=== PATIENT | female | born 1970 | race Caucasian/White ===

== ENCOUNTER 2016-08-21 08:40 | Outpatient (CLI) | payer OTHER | END 2016-08-21 08:41 | disposition home or self-care (01) | DX: N73.9 Female pelvic inflammatory disease, unspecified (principal) ==

== ENCOUNTER 2017-01-28 10:15 | Outpatient (CLI) | payer OTHER ==
--- NOTE | 2017-01-29 16:03 | Mammography Report ---
DIGITAL SCREENING MAMMOGRAM: 01/28/2017 CLINICAL INDICATION: A 46-year-old, for screening. COMPARISON: 11/2013, 10/2012, 09/2012, 12/2007. TECHNIQUE: Routine CC and MLO projections were obtained of the breasts. Bilateral laterally exaggera stone craniocaudal views. FINDINGS: The breasts again demonstrate heterogeneously dense fibroglandular parenchyma bilaterally. Punctate, typically benign calcifications are present. No suspicious masses, clustered microcalcific ations, or regions of architectural distortion are identified. IMPRESSION: BENIGN FINDINGS. RECOMMENDATION: ROUTINE ANNUAL SCREENING UNLESS OTHERWISE CLINICALLY INDICATED. BIRADS CATEGORY 2-BENIGN FINDINGS. STANDARD QUALIFYING STATEMENTS 1. This examination was reviewed with the aid of Computer-Aided Detection (CAD). 2. A negative or benign imaging report should not delay biopsy if clinically suspicious findings are present. Consider surgical consultation if warranted. More than 5% of cancers are not identified by i maging. 3. Dense breasts may obscure an underlying neoplasm. JOB #: [id number] EXT JOB #:[id number]
== END 2017-01-28 10:16 | disposition home or self-care (01) ==
LOC: DI.N 10:15
PROVIDERS: ATTEND Physician Assistant Medical
DX: Z12.31 Encounter for screening mammogram for malignant neoplasm of breast (principal)
CPT/HCPCS: 77067

== ENCOUNTER 2017-02-16 12:22 | Outpatient (CLI) | payer OTHER | END 2017-02-16 12:23 | disposition home or self-care (01) | LOC: LAB.R 12:22 | PROVIDERS: ATTEND Family Medicine | DX: N39.0 Urinary tract infection, site not specified (principal) | CPT/HCPCS: 87077; 87086 ==

== ENCOUNTER 2017-02-16 16:30 | Outpatient (CLI) | payer OTHER ==
[2017-02-16 16:53] LABS: BASOPHILS # (AUTO) 0.1 10^3/uL (0.0-0.1); BASOPHILS % (AUTO) 0.5 %; EOSINOPHILS # (AUTO) 0.1 10^3/uL (0.0-0.7); EOSINOPHILS % (AUTO) 1.1 %; HCT - HEMATOCRIT 38.7 % (37.0-47.0); HGB - HEMOGLOBIN 12.7 g/dL (12.0-16.0); LYMPHOCYTES # (AUTO) 1.6 10^3/uL (1.5-3.5); LYMPHOCYTES % (AUTO) 13.1 %; MEAN CORPUSCULAR HEMOGLOBIN 30.2 pg (27.0-31.0); MEAN CORPUSCULAR HGB CONC 32.8 g/dL (32.0-36.0); MEAN PLATELET VOLUME 7.7 fL (7.9-10.8); MONOCYTES # (AUTO) 0.9 10^3/uL (0.0-1.0); MONOCYTES % (AUTO) 7.3 %; NEUTROPHILS # (AUTO) 9.7 10^3/uL (1.5-6.6); RED CELL DISTRIBUTION WIDTH 13.1 % (12.0-15.0); UNCORRECTED WHITE BLOOD COUNT 12.4 x10^3/uL; WHITE BLOOD COUNT 12.4 x10^3/uL (4.8-10.8)
[2017-02-16 17:08] LABS: ALBUMIN/GLOBULIN RATIO 0.9 (1.0-2.2); AMYLASE 40 U/L (28-100); BILIRUBIN,TOTAL 0.2 mg/dL (0.2-1.0); BUN - BLOOD UREA NITROGEN 10 mg/dL (6-20); CARBON DIOXIDE - CO2 27 mmol/L (21-32); CHLORIDE 104 mmol/L (101-111); CREATININE 0.8 mg/dL (0.4-1.0); GFR - MDRD 77 (>89); GLUCOSE 116 mg/dL (70-100); LIPASE 20 U/L (22-51); POTASSIUM 3.8 mmol/L (3.5-5.0); SODIUM 137 mmol/L (135-145); TOTAL PROTEIN 7.2 g/dL (6.7-8.2)
[2017-02-16] MEDS ORDERED: IOPAMIDOL-300 100 ML VIAL IVP ONE (18:03)
--- NOTE | 2017-02-16 20:29 | CT Report ---
EXAM: CT ABDOMEN AND PELVIS WITHOUT AND WITH CONTRAST (CT IVP) EXAM DATE: 02/16/2017 05:33 p.m. CLINICAL HISTORY: Urinary tract infection, acute. COMPARISONS: None. TECHNIQUE: Routine helical imaging was performed through the kidneys, ureters and bladder in the prec ontrast and postcontrast delayed phase. IV Contrast: 100 mL of Isovue-300. Reconstructions: Coronal a nd sagittal. In accordance with CT protocol optimization, one or more of the following dose reduction techniques w ere utilized for this exam: automated exposure control, adjustment of mA and/or KV based on patient s ize, or use of iterative reconstructive technique. FINDINGS: Lung Bases: Unremarkable. Right Kidney/Ureter: No stones, hydronephrosis, or masses. Distal right ureter incompletely opacified . No obstructing ureteral stone. Abnormal stranding and inflammation surrounding the proximal right u reter and right renal pelvis. Mild right perinephric stranding is also present. Abnormal urothelial t hickening is present in the right renal pelvis and proximal right ureter. Left Kidney/Ureter: No stones, hydronephrosis, or masses. Other Solid Organs: The liver, spleen, pancreas, gallbladder, and adrenal glands are unremarkable.The bile ducts are unremarkable. Peritoneal Cavity/Bowel: Normal. No free fluid, free air or adenopathy. No masses. Bowel loops are u nremarkable. There are multiple diverticula seen which most severely affect the sigmoid colon. No wa ll thickening or adjacent inflammation seen. No obstruction noted. Normal appendix. Pelvic Organs: No bladder stones, obstruction or masses. The visualized pelvic organs are unremarkabl e. Vasculature: Normal. Bones: Normal. Other: None. IMPRESSION: 1. Abnormal inflammation surrounding the proximal right ureter and right renal pelvis with associated urothelial thickening. In the setting of urinary tract infection, findings are most compatible with an ascending urinary tract infection. No perinephric fluid collection, stones or renal mass. 2. Normal left CT IVP. No urinary tract masses, stones or obstruction. 3. Diverticulosis. Normal appendix. RADIA The call report notification system was initiated by Dr. Margarita Diggs at 19:47 hrs on 02/16/17. The above findings were discussed with Dr. Kincaid by Dr. Margarita Diggs at 20:19 hrs on 02/16/17. Referring Provider Line: [phone] SITE ID: [id number]
== END 2017-02-16 16:31 | disposition home or self-care (01) ==
LOC: DI 16:30
PROVIDERS: ATTEND Family Medicine
DX: N28.89 Other specified disorders of kidney and ureter (principal); K57.90 Diverticulosis of intestine, part unspecified, without perforation or abscess without bleeding; R10.9 Unspecified abdominal pain
CPT/HCPCS: 36415; 74178; 80053; 82150; 83690; 84703; 85025; Q9967; 87077; 87086

== ENCOUNTER 2017-08-28 08:00 | Outpatient (CLI) | payer OTHER | END 2017-08-28 08:01 | disposition home or self-care (01) | LOC: LAB.WCP 08:00 | PROVIDERS: ATTEND Family Medicine | DX: J06.9 Acute upper respiratory infection, unspecified (principal) | CPT/HCPCS: 87275; 87276 ==

== ENCOUNTER 2018-03-18 11:20 | Outpatient (CLI) | payer OTHER ==
[2018-03-18 19:07] LABS: BASOPHILS # (AUTO) 0.1 10^3/uL (0.0-0.1); BASOPHILS % (AUTO) 1.1 %; EOSINOPHILS # (AUTO) 0.1 10^3/uL (0.0-0.7); EOSINOPHILS % (AUTO) 2.1 %; HGB - HEMOGLOBIN 12.3 g/dL (12.0-16.0); LYMPHOCYTES % (AUTO) 19.8 %; MEAN CORPUSCULAR HEMOGLOBIN 33.6 pg (27.0-31.0); MEAN CORPUSCULAR HGB CONC 33.7 g/dL (32.0-36.0); MEAN CORPUSCULAR VOLUME 99.8 fL (81.0-99.0); MEAN PLATELET VOLUME 8.9 fL (7.9-10.8); MONOCYTES # (AUTO) 0.5 10^3/uL (0.0-1.0); MONOCYTES % (AUTO) 10.6 %; NEUTROPHILS # (AUTO) 3.3 10^3/uL (1.5-6.6); NEUTROPHILS % (AUTO) 66.4 %; PLT - PLATELET COUNT 163 10^3/uL (130-450); RED BLOOD COUNT 3.65 10^6/uL (4.20-5.40); RED CELL DISTRIBUTION WIDTH 15.7 % (12.0-15.0); WHITE BLOOD COUNT 4.9 x10^3/uL (4.8-10.8)
[2018-03-18 19:19] LABS: ALBUMIN 3.6 g/dL (3.2-5.5); ALBUMIN/GLOBULIN RATIO 1.2 (1.0-2.2); ALKALINE PHOSPHATASE 42 IU/L (42-121); ALT ALANINE AMINOTRANSFERASE 82 IU/L (10-60); AST ASPARTATE AMINOTRANSFERASE 92 IU/L (10-42); BILIRUBIN,TOTAL 0.4 mg/dL (0.2-1.0); BUN - BLOOD UREA NITROGEN 9 mg/dL (6-20); CALCIUM 9.7 mg/dL (8.5-10.3); CARBON DIOXIDE - CO2 25 mmol/L (21-32); CHLORIDE 104 mmol/L (101-111); GFR - MDRD 59 (>89); GLUCOSE 170 mg/dL (70-100); SODIUM 137 mmol/L (135-145); TOTAL PROTEIN 6.7 g/dL (6.7-8.2)
[2018-03-18 19:27] LABS: THYROID STIMULATING HORMONE 1.91 uIU/mL (0.34-5.60)
[2018-03-18 19:32] LABS: PROLACTIN 9.91 ng/mL
== END 2018-03-18 11:21 ==
LOC: LAB.WCP 11:20
PROVIDERS: ATTEND Family Medicine
DX: E31.21 Multiple endocrine neoplasia [MEN] type I (principal)
CPT/HCPCS: 36415; 80053; 83970; 84146; 84443; 85025

== ENCOUNTER 2018-03-22 15:54 | Outpatient (CLI) | payer OTHER ==
[2018-03-22 16:13] LABS: BASOPHILS % (AUTO) 0.7 %; EOSINOPHILS # (AUTO) 0.1 10^3/uL (0.0-0.7); EOSINOPHILS % (AUTO) 1.8 %; HGB - HEMOGLOBIN 12.4 g/dL (12.0-16.0); LYMPHOCYTES # (AUTO) 1.6 10^3/uL (1.5-3.5); LYMPHOCYTES % (AUTO) 27.1 %; MEAN CORPUSCULAR HEMOGLOBIN 33.2 pg (27.0-31.0); MEAN CORPUSCULAR HGB CONC 33.5 g/dL (32.0-36.0); MEAN CORPUSCULAR VOLUME 99.2 fL (81.0-99.0); MEAN PLATELET VOLUME 7.8 fL (7.9-10.8); MONOCYTES # (AUTO) 1.1 10^3/uL (0.0-1.0); MONOCYTES % (AUTO) 17.9 %; NEUTROPHILS # (AUTO) 3.1 10^3/uL (1.5-6.6); NEUTROPHILS % (AUTO) 52.5 %; PLT - PLATELET COUNT 240 10^3/uL (130-450); RED BLOOD COUNT 3.72 10^6/uL (4.20-5.40); RED CELL DISTRIBUTION WIDTH 16.2 % (12.0-15.0); WHITE BLOOD COUNT 5.9 x10^3/uL (4.8-10.8)
== END 2018-03-22 15:55 | disposition home or self-care (01) ==
LOC: LAB 15:54
PROVIDERS: ATTEND Registered Nurse
DX: N93.9 Abnormal uterine and vaginal bleeding, unspecified (principal)
CPT/HCPCS: 36415; 84443; 85025; 85730

== ENCOUNTER 2019-06-13 12:09 | Outpatient (CLI) | payer OTHER ==
--- NOTE | 2019-06-13 15:05 | XRAY Report ---
Reason: LEFT ELBOW JOINT PAIN Procedure Date: 06/13/2019 Accession Number: [id number] / [id number] Procedure: WCP - Elbow 2 View LT CPT Code: Final Report FULL RESULT: EXAM: LEFT ELBOW RADIOGRAPHY EXAM DATE: 06/13/2019 12:26 PM. CLINICAL HISTORY: Left elbow joint pain. COMPARISON: None. TECHNIQUE: 2 views. FINDINGS: Bones: A sharply angulated osseous fragment projecting anterior to the joint space on the lateral view is suggestive of avulsion fracture. Joints: Evaluation for joint effusion is somewhat limited by suboptimal obliquity on the lateral view. No large joint effusion. No dislocation. Soft Tissues: Normal. No soft tissue swelling. IMPRESSION: Small osseous fragment suggestive of avulsion fracture which is not directly visualized. RADIA
--- NOTE | 2019-06-13 15:08 | XRAY Report ---
Reason: LEFT SHOULDER PAIN Procedure Date: 06/13/2019 Accession Number: [id number] / [id number] Procedure: WCP - Shoulder 3 View LT CPT Code: Final Report FULL RESULT: EXAM: LEFT SHOULDER RADIOGRAPHY EXAM DATE: 06/13/2019 12:26 PM. CLINICAL HISTORY: Left shoulder pain. COMPARISON: None. TECHNIQUE: 3 views. FINDINGS: Bones: Normal. No fracture or bone lesion. Joints: The glenohumeral and acromioclavicular joints are normally located with minimal degenerative changes of the AC joint. Soft tissues: The visualized hemithorax is unremarkable. No soft tissue swelling. IMPRESSION: Minimal degenerative changes. RADIA
== END 2019-06-13 23:59 | disposition home or self-care (01) ==
LOC: DI.WCP 12:09
PROVIDERS: ATTEND Physician Assistant
DX: M19.012 Primary osteoarthritis, left shoulder (principal); M25.522 Pain in left elbow

== ENCOUNTER 2019-07-29 09:21 | Outpatient (CLI) | payer OTHER ==
--- NOTE | 2019-07-29 15:19 | CT Report ---
Reason: INTRACRANIAL BLEEDING Procedure Date: 07/29/2019 Accession Number: [id number] / [id number] Procedure: CT - HEAD WO CPT Code: Addended Final Report FULL RESULT: EXAM: CT HEAD EXAM DATE: 07/29/2019 09:58 AM. CLINICAL HISTORY: Fall 07/10/2019, treated in [place] with diagnosis of intracranial bleeding. This is for follow-up of intracranial hemorrhage. COMPARISON: None. TECHNIQUE: Multiaxial CT images were obtained from the foramen magnum to the vertex. Reformats: Sagittal and coronal. IV contrast: None. In accordance with CT protocol optimization, one or more of the following dose reduction techniques were utilized for this exam: automated exposure control, adjustment of mA and/or KV based on patient size, or use of iterative reconstructive technique. FINDINGS: Parenchyma: No intraparenchymal hemorrhage. No evidence of mass. Lanza-white differentiation is distinct. Extraaxial Spaces: A relatively hypodense subdural extra-axial right frontal collection is identified with a maximal thickness of 0.8 cm as seen coronally on image 20 series 6, axially image 18 series 3, compatible with reported history of recent intracranial hemorrhage. The collection extends along the parietal convexity on the right. There is no hyperdense component to suggest superimposed acute ongoing bleeding. Basal cisterns are preserved. Ventricles: There is mass-effect associated with the subdural collection which narrows the right lateral ventricular system compared to the left and causes approximately 3-4 mm of leftward midline shift. Sinuses and Orbits: There is a partial right mastoid effusion. Left mastoid air cells are normally aerated. Visualized sinuses are unremarkable. Visualized orbits are unremarkable. Bones: No evidence of fracture or calvarial defect. Other: None. IMPRESSION: Right subdural hemorrhage with maximal thickness of 0.8 cm and up to 4 mm of leftward midline shift as described. WINTER The call report notification system was initiated by Dr. Osvaldo Galvan at 03:18 PM on 07/29/2019. ADDENDUM: 07/29/19 15:27 The above call report findings were discussed with Dawson Townsend by Dr. Osvaldo Galvan at 03:27 PM on 07/29/2019.
== END 2019-07-29 09:22 | disposition home or self-care (01) ==
LOC: DI 09:21
PROVIDERS: ATTEND Nurse Practitioner Family
DX: I62.00 Nontraumatic subdural hemorrhage, unspecified (principal)
CPT/HCPCS: 70450

== ENCOUNTER 2020-01-06 12:01 | Outpatient (CLI) | payer OTHER ==
--- NOTE | 2020-01-06 16:35 | XRAY Report ---
Reason: ARTHRITIS Procedure Date: 01/06/2020 Accession Number: [id number] / [id number] Procedure: [facility]CP - Hand 2 View BILAT CPT Code: Final Report FULL RESULT: PROCEDURE: Hand 2 View BILAT INDICATIONS: ARTHRITIS TECHNIQUE: 3 views of the hand(s) acquired. COMPARISON: None FINDINGS: Bones: No fractures or dislocations. No suspicious bony lesions. Bilateral scattered IP degenerative narrowing bilaterally there are several small scattered periarticular subchondral lucencies identified most notable at the PIP joints of the second third and fourth digits on the left. Soft tissues: No suspicious soft tissue calcifications. IMPRESSION: IP degenerative narrowing. Subchondral lucencies noted above. Both these could be degenerative, early erosions cannot be excluded. Reviewed by: Nettie Jacobs MD on 01/06/2020 4:34 PM PDT Approved by: Nettie Jacobs MD on 01/06/2020 4:34 PM PDT Station ID: [id number]
== END 2020-01-06 23:59 | disposition home or self-care (01) ==
LOC: DI.WCP 12:01
PROVIDERS: ATTEND Family Medicine
DX: M19.042 Primary osteoarthritis, left hand (principal); M19.041 Primary osteoarthritis, right hand

== ENCOUNTER 2020-08-20 10:10 | Outpatient (CLI) | payer OTHER ==
[2020-08-20 19:08] LABS: RAPID STREP SCREEN Negative (Negative)
== END 2020-08-20 23:59 | disposition home or self-care (01) ==
LOC: LAB.R 10:10
PROVIDERS: ATTEND Nurse Practitioner
DX: R07.0 Pain in throat (principal); Z20.822 Contact with and (suspected) exposure to COVID-19
CPT/HCPCS: 87070; 87275; 87276; 87430

== ENCOUNTER 2022-07-26 18:21 | Outpatient (CLI) | payer OTHER | END 2022-07-26 18:22 | disposition short-term general hospital (02) | LOC: EMS 18:21 | DX: M62.49 Contracture of muscle, multiple sites (principal); R07.89 Other chest pain; R20.0 Anesthesia of skin | CPT/HCPCS: A0425; A0429 ==